=== PATIENT | male | born 1980 | race Caucasian/White ===

== ENCOUNTER 2018-10-21 08:02 | Emergency (ER) | payer MEDICAID, SELFPAY ==
[2018-10-21 08:06] VITALS: BP 119/73; PULSE 80; RESP 16; TEMP 36.6; O2SAT 98
[2018-10-21] MEDS: Cephalexin 500 MG CAP PO (08:41)
[2018-10-21] MEDS: Sulfameth/Trimeth DS TAB 2 TAB PO (08:41)
--- NOTE | 2018-10-21 08:59 | W.ED.GENAD ---
Discharge Plan Disposition Patient Disposition: HOME Condition: Fair Discharge Details Chief Complaint: Cellulitis Clinical Impression: Cellulitis of back Primary Care Provider: Nora,Local ED Provider: Asiya Bailey Home Meds and New Rx's Prescriptions: New cephalexin [Keflex] 500 mg capsule 500 mg PO QID Qty: 27 RF: 0 sulfamethoxazole-trimethoprim [Bactrim DS] 800-160 mg tablet 2 tab PO Q12H Qty: 28 RF: 0 Discharge Instructions Instructions: Cellulitis (ED) Additional Instructions: Encourage hydration. You may use Tylenol and/or ibuprofen as needed for discomfort. Please take the antibiotics as prescribed, play close attention to the dosing instructions on bottle. Please continue to monitor the area of redness, this is been marked out today. If the redness spreads beyond the borders, you develop increased pain, fevers or the new/worsening symptoms please seek care immediately once again. Otherwise, please follow-up within the next 4 days with primary care for reevaluation. Medical Decision Making Patient is a 38-year-old, otherwise healthy male, presenting today with chief complaint of redness in his back. He reports that for the past 4 to 5 days he has noted a red area of mild discomfort on the right side of his back. Believes initially began with a bug bite that he described as a small pimple. States that he did have some drainage initially from this and did frequently open this area to try to allow more drainage to come forward. States that he had a family member try to do this again last night but no drainage was able to be expressed at that point. However, he has noted area of erythema surrounding this that has slowly been spreading. Patient does have a partial marker border that does reframe this well along the right side, patient reports that this line is been there for the past 2 days. States that he had fevers a few days ago but none today. Endorses mild nausea this morning which is since resolved. Patient appears nontoxic. He has good range of motion of his back with no discomfort. He does have an area of cellulitis on his back 24 x 30 cm in size. I did evaluate this area with an ultrasound did not see any evidence to suggest an abscess nor is none noted on exam. Advised cellulitis. At this point, I do not see any evidence to suggest nitrogen to spine or bony involvement. Patient will be placed on Bactrim and Keflex. Patient is allergic to penicillin, unknown reaction. Does not believe he is taking Keflex in the past, will give him a dose here and trial this. Patient given Bactrim and Keflex, stay in the department for over 30 minutes with no evidence of reaction. Encourage prompt follow-up with primary care, patient does have a PCP in [place]. He was given strict return precautions. I asked that he contact them tomorrow for appointment as soon as possible, which should be seen within the next 4 days. All his questions and concerns were addressed and he is in agreement this plan HPI General Mode of arrival: ambulatory. Date/Time Provider Initiated Documentation: 10/21/18 08:20. Limitations to Documentation: no limitations. Information obtained by: patient and RN notes reviewed. History of Present Illness 38 year old M presents to the emergency department with the chief complaint of red area on back , described as mild, with intensity rated at 2. Quality is described as aching, and is localized to the back. Patient reports no radiation. Patient started experiencing this day(s) (4) and it has been constant. No relieving factors improve symptom(s), No exacerbating factors reported . Patient notes fever/chills (felt feverish yesterday), nausea/vomiting (reports nausea this AM that has since resolved) and rash; denies headaches, loss of appetite, shortness of breath and weakness. Patient did receive the following treatments prior to arrival, none Related Data Home Medications Medication Instructions Recorded Confirmed cephalexin [Keflex] 500 mg PO QID #27 cap 10/21/18 sulfamethoxazole-trimethoprim 2 tab PO Q12H #28 tab 10/21/18 [Bactrim DS] Previous Rx's Medication Instructions Recorded cephalexin [Keflex] 500 mg PO QID #27 cap 10/21/18 sulfamethoxazole-trimethoprim 2 tab PO Q12H #28 tab 10/21/18 [Bactrim DS] Allergies Allergy/AdvReac Type Severity Reaction Status Date / Time Penicillins Allergy Unknown Unverified 10/21/18 08:13 General Stated Complaint: Cellulitis CAROLE: 3 Review of Systems Constitutional Reports as per HPI, Denies chills, Denies fatigue, Reports fever(s) (none today), Denies headache(s) and Denies lethargy ENT Denies headache(s) Cardiovascular Denies dyspnea Respiratory Denies dyspnea Gastrointestinal Reports nausea (since resolved) and Denies vomiting Musculoskeletal Reports as per HPI Integumentary/Breasts Reports as per HPI Neurologic Reports as per HPI, Denies headache(s), Denies sensory deficit and Denies paresthesias Endocrine Denies fatigue [facility] Social History Smoking/Tobacco Use Status: Current every day Tobacco Type: cigarettes Smoking cigarettes per day: 10 Alcohol Intake: current Alcohol Intake frequency: holidays/special occasions only Drug use: Daily Substance use type: does not use and marijuana Do you feel safe at home: Yes Do you feel safe in your relationship?: Yes Exam Const General: cooperative, healthy appearing, comfortable, no acute distress and well developed Nutritional Appearance: average body habitus and well nourished Orientation: alert and awake Neck Neck: no meningeal signs Resp Effort & Inspection: normal respiratory effort, able to speak in complete sentences and no respiratory distress Cardio Rate: regular rate Rhythm: regular rhythm Back/Spine/Pelvis Back: erythema (as described below), warmth and back tenderness (around area of erythema) Cervical Spine: normal cervical lordosis and cervical ROM normal Thoracic/Lumbar Spine: No thoracic and lumbar spine normal to inspection (erythema as below), No pain with thoraco-lumbar ROM and No thoracic spinal tenderness Back/spine/pelvis image: 1. area of erythema 2. area scabbed over from drainage site Skin General skin exam: no crusts, erythema (30cm x 24cm area on back with scabbed area to right), no fluctuance and no induration Neuro General: alert and awake Cognition: normal cognition Speech: speech normal Gait: normal gait Sensory Exam: no sensory deficits noted Psych Appearance: grossly normal and well kempt Mental Status: mental status grossly normal Speech and Movement: speech and movement normal Course Vital Signs Temperature 36.6 C 10/21/18 08:06 Pulse 80 10/21/18 08:06 Respiratory Rate 16 10/21/18 08:06 Blood Pressure 119/73 10/21/18 08:06 Pulse Oximetry 98 10/21/18 08:06 Temperature 36.6 C 10/21/18 08:06 Temperature Source Oral 10/21/18 08:06 Pulse 80 10/21/18 08:06 Respiratory Rate 16 10/21/18 08:06 Blood Pressure 119/73 10/21/18 08:06 Blood Pressure Position Supine 10/21/18 08:06 Pulse Oximetry 98 10/21/18 08:06 Oxygen Delivery Method Room Air 10/21/18 08:06 Oxygen Flow Rate 0 10/21/18 08:06 Pain Level 2 10/21/18 08:06
--- NOTE | 2018-10-21 09:04 | ED.GENADUL_ITS ---
Discharge Plan Disposition Patient Disposition: HOME Condition: Fair Discharge Details Chief Complaint: Cellulitis Clinical Impression: Cellulitis of back Primary Care Provider: Nora,Local ED Provider: Asiya Bailey Home Meds and New Rx's Prescriptions: New cephalexin [Keflex] 500 mg capsule 500 mg PO QID Qty: 27 RF: 0 sulfamethoxazole-trimethoprim [Bactrim DS] 800-160 mg tablet 2 tab PO Q12H Qty: 28 RF: 0 Discharge Instructions Instructions: Cellulitis (ED) Additional Instructions: Encourage hydration. You may use Tylenol and/or ibuprofen as needed for discomfort. Please take the antibiotics as prescribed, play close attention to the dosing instructions on bottle. Please continue to monitor the area of redness, this is been marked out today. If the redness spreads beyond the borders, you develop increased pain, fevers or the new/worsening symptoms please seek care immediately once again. Otherwise, please follow-up within the next 4 days with primary care for reevaluation. Medical Decision Making Patient is a 38-year-old, otherwise healthy male, presenting today with chief complaint of redness in his back. He reports that for the past 4 to 5 days he has noted a red area of mild discomfort on the right side of his back. Believes initially began with a bug bite that he described as a small pimple. States that he did have some drainage initially from this and did frequently open this area to try to allow more drainage to come forward. States that he had a family member try to do this again last night but no drainage was able to be expressed at that point. However, he has noted area of erythema surrounding this that has slowly been spreading. Patient does have a partial marker border that does reframe this well along the right side, patient reports that this line is been there for the past 2 days. States that he had fevers a few days ago but none today. Endorses mild nausea this morning which is since resolved. Patient appears nontoxic. He has good range of motion of his back with no discomfort. He does have an area of cellulitis on his back 24 x 30 cm in size. I did evaluate this area with an ultrasound did not see any evidence to suggest an abscess nor is none noted on exam. Advised cellulitis. At this point, I do not see any evidence to suggest nitrogen to spine or bony involvement. Patient will be placed on Bactrim and Keflex. Patient is allergic to penicillin, unknown reaction. Does not believe he is taking Keflex in the past, will give him a dose here and trial this. Patient given Bactrim and Keflex, stay in the department for over 30 minutes with no evidence of reaction. Encourage prompt follow-up with primary care, patient does have a PCP in [place]. He was given strict return precautions. I asked that he contact them tomorrow for appointment as soon as possible, which should be seen within the next 4 days. All his questions and concerns were addressed and he is in agreement this plan HPI General Mode of arrival: ambulatory . Date/Time Provider Initiated Documentation: 10/21/18 08:20 . Limitations to Documentation: no limitations . Information obtained by: patient and RN notes reviewed . History of Present Illness 38 year old M presents to the emergency department with the chief compl aint of red area on back , described as mild, with intensity rated at 2. Quality is described as aching, and is localized to the back. Patient reports no radiation. Patient started experiencing this day(s) (4) and it has been constant. No relieving factors improve symptom(s), No exacerbating factors reported . Patient notes fever/chills (felt feverish yesterday), nausea/vomiting (reports nausea this AM that has since resolved) and rash; denies headaches, loss of appetite, shortness of breath and weakness. Patient did receive the following treatments prior to arrival, none Related Data Home Medications Medication Instructions Recorded Confirmed cephalexin [Keflex] 500 mg PO QID #27 cap 10/21/18 sulfamethoxazole-trimethoprim 2 tab PO Q12H #28 tab 10/21/18 [Bactrim DS] Previous Rx's Medication Instructions Recorded cephalexin [Keflex] 500 mg PO QID #27 cap 10/21/18 sulfamethoxazole-trimethoprim 2 tab PO Q12H #28 tab 10/21/18 [Bactrim DS] Allergies Allergy/AdvReac Type Severity Reaction Status Date / Time Penicillins Allergy Unknown Unverified 10/21/18 08:13 General Stated Complaint: Cellulitis CAROLE: 3 Review of Systems Constitutional Reports as per HPI, Denies chills, Denies fatigue, Reports fever(s) (none today), Denies headache(s) and Denies lethargy ENT Denies headache(s) Cardiovascular Denies dyspnea Respiratory Denies dyspnea Gastrointestinal Reports nausea (since resolved) and Denies vomiting Musculoskeletal Reports as per HPI Integumentary/Breasts Reports as per HPI Neurologic Reports as per HPI, Denies headache(s), Denies sensory deficit and Denies paresthesias Endocrine Denies fatigue [facility] Social History Smoking/Tobacco Use Status: Current every day Tobacco Type: cigarettes Smoking cigarettes per day: 10 Alcohol Intake: current Alcohol Intake frequency: holidays/special occasions only Drug use: Daily Substance use type: does not use and marijuana Do you feel safe at home: Yes Do you feel safe in your relationship?: Yes Exam Const General: cooperative, healthy appearing, comfortable, no acute distress and well developed Nutritional Appearance: average body habitus and well nourished Orientation: alert and awake Neck Neck: no meningeal signs Resp Effort & Inspection: normal respiratory effort, able to speak in complete sentences and no respiratory distress Cardio Rate: regular rate Rhythm: regular rhythm Back/Spine/Pelvis Back: erythema (as described below), warmth and back tenderness (around area of erythema) Cervical Spine: normal cervical lordosis and cervical ROM normal Thoracic/Lumbar Spine: No thoracic and lumbar spine normal to inspection (erythema as below), No pain with thoraco-lumbar ROM and No thoracic spinal tenderness Back/spine/pelvis image: 1. area of erythema 2. area scabbed over from drainage site Skin General skin exam: no crusts, erythema (30cm x 24cm area on back with scabbed area to right), no fluctuance and no induration Neuro General: alert and awake Cognition: normal cognition Speech: speech normal Gait: normal gait Sensory Exam: no sensory deficits noted Psych Appearance: grossly normal and well kempt Mental Status: mental status grossly normal Speech and Movement: speech and movement normal Course Vital Signs Temperature 36.6 C 10/21/18 08:06 Pulse 80 10/21/18 08:06 Respiratory Rate 16 10/21/18 08:06 Blood Pressure 119/73 10/21/18 08:06 Pulse Oximetry 98 10/21/18 08:06 Temperature 36.6 C 10/21/18 08:06 Temperature Source Oral 10/21/18 08:06 Pulse 80 10/21/18 08:06 Respiratory Rate 16 10/21/18 08:06 Blood Pressure 119/73 10/21/18 08:06 Blood Pressure Position Supine 10/21/18 08:06 Pulse Oximetry 98 10/21/18 08:06 Oxygen Delivery Method Room Air 10/21/18 08:06 Oxygen Flow Rate 0 10/21/18 08:06 Pain Level 2 10/21/18 08:06
[2018-10-21 09:16] VITALS: BP 116/70; PULSE 72; RESP 15; O2SAT 98
== END 2018-10-21 09:19 | disposition home or self-care (01) ==
PROVIDERS: Emergency Provider Physician Assistant
DX: L03.312 Cellulitis of back [any part except buttock and flank] (principal); R50.9 Fever, unspecified; R11.0 Nausea
CPT/HCPCS: 99283